=== PATIENT | male | born 1985 | race Caucasian/White ===

== ENCOUNTER 2016-08-01 21:06 | Emergency (ER) | payer SELFPAY ==
--- NOTE | ~2016-08-01 | ER ---
PATIENT'S NAME: UTE FITZPATRICK [facility] AGE: 31 Y [address] ROOM: [place] [id number] LOCATION: [facility] ADMIT DATE: 08/01/2016 ER/Outpatient Report DISCHARGE DATE: 08/01/2016 FAMILY PHYSICIAN: PHYSICIAN, NO ATTENDING PHYSICIAN: Marino Salgado TIME SEEN: 2120 hours. HISTORY OF PRESENT ILLNESS: The patient is a 31-year-old male, said night he got up to go to the bathroom, he tripped on his dog and fell, hitting the back of the head against the wall. He said he did not lose consciousness, but since the accident he has had a constant headache. He has noticed some mild neck pain. No numbness or tingling to his extremities. No vomiting. ALLERGIES: NONE. HOME MEDICATIONS: None. MEDICAL HISTORY: Asthma. SURGERIES: He has had LASIK eye surgery. SOCIAL HISTORY: Nonsmoker. Alcohol occasionally. REVIEW OF SYSTEMS: GENERAL: No fevers. HEAD/ENT: Has had a posterior headache since his fall. NECK: He has had some mild neck discomfort. GASTROINTESTINAL: No nausea or vomiting. NEURO/PSYCH: No numbness or tingling to his extremities. OBJECTIVE FINDINGS: VITAL SIGNS: Vital signs reviewed. GENERAL: The patient is alert and cooperative. HEAD/EENT: Exam of his head showed some slight tenderness in the posterior occipital area. Pupils were equal and reactive to light. He had some mild central cervical spine tenderness. PATIENT'S NAME: UTE FITZPATRICK [facility] AGE: 31 Y [address] ROOM: [place] [address] LOCATION: [facility] ADMIT DATE: 08/01/2016 ER/Outpatient Report DISCHARGE DATE: 08/01/2016 FAMILY PHYSICIAN: PHYSICIAN, NO ATTENDING PHYSICIAN: Marino Salgado LABORATORY DATA AND X-RAYS: CT imaging of his head and C-spine were negative for any acute injuries. ASSESSMENT: 1. Ground level fall. 2. Possible concussion with a postconcussion headache. PLAN: Just recommend general rest. Tylenol or ibuprofen for pain. Follow up if he does not continue to improve. CARLEY MAXWELL FOR MD IRAJ WU/modl /[id number] d: 08/01/16 2222 t: 08/09/16 1209, OUTPATIENT REPORT
== END 2016-08-01 21:58 | disposition disaster alternative care site (69) ==
LOC: GACC 21:06
DX: G44.309 Post-traumatic headache, unspecified, not intractable (principal); J45.909 Unspecified asthma, uncomplicated; Z98.890 Other specified postprocedural states; W01.0XXA Fall on same level from slipping, tripping and stumbling without subsequent striking against object, initial encounter